=== PATIENT | male | born 2000 | race Caucasian/White ===

== ENCOUNTER 2021-10-25 16:25 | Emergency (ER) | payer OTHER, SELFPAY ==
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
[2021-10-25 16:45] VITALS: BP 146/90; BP 152/88; PULSE 88; PULSE 99; RESP 16; TEMP 36.8; O2SAT 98; O2SAT 99; BMI 24.9
[2021-10-25] MEDS: Ibuprofen 600 MG TABLET PO (17:22)
[2021-10-25] MEDS: Acetaminophen 325 MG TABLET 975 MG PO (17:22)
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
== END 2021-10-25 18:48 | disposition home or self-care (01) ==
PROVIDERS: Emergency Provider Emergency Medicine
DX: S79.811A Other specified injuries of right hip, initial encounter (principal); S79.911A Unspecified injury of right hip, initial encounter; M25.551 Pain in right hip; M79.604 Pain in right leg; V43.52XA Car driver injured in collision with other type car in traffic accident, initial encounter; Y93.9 Activity, unspecified; Y92.410 Unspecified street and highway as the place of occurrence of the external cause; Y99.9 Unspecified external cause status
CPT/HCPCS: 73502; 73590; 99283; 99284